=== PATIENT | female | born 1940 | race Caucasian/White ===

== ENCOUNTER 2017-09-08 05:59 | Day surgery (SDC) | payer MEDICARE ==
[2017-09-04 10:10] LABS: BASOPHILS % (AUTO) 0.3 % (0-1); EOSINOPHILS # (AUTO) 0.3 X10'3 (0-0.9); EOSINOPHILS % (AUTO) 4.2 % (0-6); LYMPHOCYTES % (AUTO) 27.9 % (21-51); MEAN CORPUSCULAR HEMOGLOBIN 32.3 PG (27.0-31.0); MEAN CORPUSCULAR HGB CONC 35.5 % (33.0-36.5); MEAN CORPUSCULAR VOLUME 90.9 FL (78-98); MEAN PLATELET VOLUME 8.3 FL (7.4-10.4); MONOCYTES # (AUTO) 0.6 X10'3 (0-0.9); MONOCYTES % (AUTO) 7.9 % (2-12); NEUTROPHILS # (AUTO) 4.3 X10'3 (1.8-7.7); NEUTROPHILS % (AUTO) 59.7 % (42-75); PRE OP HEMOGLOBIN 13.5 g/dL (12.0-16.0); PRE OP PLATELET COUNT 174 X10'3 (140-440); RED BLOOD COUNT 4.18 X10'6 (4.20-5.60); RED CELL DISTRIBUTION WIDTH 13.6 % (11.5-14.5)
[2017-09-04 10:26] LABS: ALBUMIN 3.9 G/DL (3.4-5.0); ALBUMIN/GLOBULIN RATIO 1.3 (1.1-1.5); ALKALINE PHOSPHATASE 90 IU/L (46-116); BLOOD UREA NITROGEN 10 MG/DL (7-18); BUN/CREATININE RATIO 10.8 (6.6-38.0); CALCIUM 9.6 MG/DL (8.5-10.1); CHLORIDE 103 MMOL/L (99-107); CREATININE 0.93 MG/DL (0.40-0.90); PRE OP ALT 21 U/L (30-65); PRE OP ANION GAP 7 (8-16); PRE OP AST 16 U/L (10-37); PRE OP BILIRUB, TOTAL 0.5 MG/DL (0.0-1.0); PRE OP GLUCOSE 180 MG/DL (70-104); PRE OP POTASSIUM 4.3 MMOL/L (3.4-5.1); PRE OP SODIUM 140 MMOL/L (135-145); TOTAL CARBON DIOXIDE 29.6 MMOL/L (24-32); eGFR 58 ML/MIN
[~2017-09-08] VITALS: Ht 170.2 cm; Wt 84.6 kg
[2017-09-08] VITALS (7 sets, daily range): BP systolic 121–149; BP diastolic 67–80
[~2017-09-08 05:59] MED LIST: ACET-3067 PO; ALBU8HFA INH; AMIT-189 PO; AMLO2.5T2 PO; ASPI-529 PO; ATOR40TA PO; CLOT15CR73 TP; DICL50TA8; DOCUMENT DATE & TIME OF BETA-BLOCKER PO ONE; DULO30CA51; HYDR-4070 PO; HYDR28CR14 TOP; INSU100V9 SQ; ISOS30TA9; LEVO50TA8 PO; LOSA25TA21 PO; LYR75C PO; METO-411 PO; NITR0.4T48 SL; NYSTATIN POWDER TOP; OXYB15TA PO; PANT40TA4 PO; ROPI0.252 PO; SITA100T15 PO; albuterol 2.5 MG/3 ML nebule NEB ONE; cefazolin/dext.iso 2gm/50ml 50 ML IV ONE; famotidine 20mg tablet PO ONE; ringers solution, lacted 1,000 ML IV SCH
[2017-09-08] MEDS ORDERED: BUPIVAcaine/PF 2.5 mg/ml (0.25%) 30ml vial ONE (06:47)
[2017-09-08] MEDS ORDERED: insulin regular, human 10 units/0.1 ml syringe SQ ONE (07:15)
[2017-09-08] MEDS ORDERED: LIDOcaine 0.5% (5mg/ml) 50ml vial ONE (08:11)
[2017-09-08] MEDS ORDERED: midazolam 2 mg/2 ml injection ONE (08:43)
[2017-09-08] MEDS ORDERED: sodium bicarbonate 1 MEQ/1 ml inj ONE (08:43)
[2017-09-08] MEDS ORDERED: fentaNYL/PF 50MCG/1 ML 2ML syringe ONE (08:43)
[2017-09-08] MEDS ORDERED: ringers solution, lacted 1,000 ML IV SCH (08:46)
[2017-09-08] MEDS ORDERED: ondansetron/PF 4mg/2ml inj IV PRN (08:50)
[2017-09-08] MEDS ORDERED: morphine 2 MG/ML inj. syringe IV PRN ×2 (08:50)
[2017-09-08] MEDS ORDERED: proCHLORperazine 10 MG/2 ml inj IV PRN (08:50)
[2017-09-08] MEDS ORDERED: fentaNYL/PF 50MCG/1 ML 2ML syringe IV PRN ×2 (08:50)
[2017-09-08] MEDS ORDERED: meperidine/PF 50mg/ml syringe IV PRN (08:50)
[2017-09-08] MEDS ORDERED: propofol inj 20 ML IV ONE (09:05)
== END 2017-09-08 10:15 | disposition home or self-care (01) ==
LOC: PAS 05:59
PROVIDERS: ATTEND Orthopaedic Surgery Hand Surgery
DX: G56.01 Carpal tunnel syndrome, right upper limb (principal); M18.11 Unilateral primary osteoarthritis of first carpometacarpal joint, right hand; G62.9 Polyneuropathy, unspecified; J44.9 Chronic obstructive pulmonary disease, unspecified; E66.9 Obesity, unspecified; E11.40 Type 2 diabetes mellitus with diabetic neuropathy, unspecified; F32.9 Major depressive disorder, single episode, unspecified; G47.33 Obstructive sleep apnea (adult) (pediatric); M19.90 Unspecified osteoarthritis, unspecified site; Z79.82 Long term (current) use of aspirin; Z79.1 Long term (current) use of non-steroidal anti-inflammatories (NSAID); Z79.4 Long term (current) use of insulin; Z96.643 Presence of artificial hip joint, bilateral; Z90.49 Acquired absence of other specified parts of digestive tract; Z98.51 Tubal ligation status; Z88.6 Allergy status to analgesic agent; Z88.8 Allergy status to other drugs, medicaments and biological substances; Z98.890 Other specified postprocedural states; Z68.29 Body mass index [BMI] 29.0-29.9, adult; Z79.899 Other long term (current) drug therapy
CPT/HCPCS: 36415; 64721; 80053; 82948; 85025; 93005; A4565; A6222; A6449; J0690; J2001; J2250; J2704; J3010; J3490; J7120

== ENCOUNTER 2017-12-01 05:17 | Day surgery (SDC) | payer MEDICARE ==
[2017-11-22 13:32] LABS: BASOPHILS % (AUTO) 0.5 % (0-1); EOSINOPHILS # (AUTO) 0.2 X10'3 (0-0.9); EOSINOPHILS % (AUTO) 3.8 % (0-6); LYMPHOCYTES # (AUTO) 1.8 X10'3 (1.1-4.8); LYMPHOCYTES % (AUTO) 31.7 % (21-51); MEAN CORPUSCULAR HEMOGLOBIN 31.7 PG (27.0-31.0); MEAN CORPUSCULAR HGB CONC 34.5 % (33.0-36.5); MEAN CORPUSCULAR VOLUME 91.9 FL (78-98); MEAN PLATELET VOLUME 8.7 FL (7.4-10.4); MONOCYTES # (AUTO) 0.4 X10'3 (0-0.9); NEUTROPHILS # (AUTO) 3.2 X10'3 (1.8-7.7); PRE OP HEMATOCRIT 38.6 % (35.0-45.0); PRE OP HEMOGLOBIN 13.3 g/dL (12.0-16.0); PRE OP PLATELET COUNT 177 X10'3 (140-440); RED CELL DISTRIBUTION WIDTH 13.4 % (11.5-14.5)
[2017-11-22 13:50] LABS: ALBUMIN 3.7 G/DL (3.4-5.0); ALBUMIN/GLOBULIN RATIO 1.1 (1.1-1.5); ALKALINE PHOSPHATASE 107 IU/L (46-116); BLOOD UREA NITROGEN 10 MG/DL (7-18); BUN/CREATININE RATIO 10.3 (6.6-38.0); CALCIUM 9.5 MG/DL (8.5-10.1); CHLORIDE 100 MMOL/L (99-107); CREATININE 0.97 MG/DL (0.40-0.90); PRE OP ALT 33 U/L (30-65); PRE OP ANION GAP 10 (8-16); PRE OP AST 19 U/L (10-37); PRE OP BILIRUB, TOTAL 0.4 MG/DL (0.0-1.0); PRE OP POTASSIUM 4.4 MMOL/L (3.4-5.1); PRE OP SODIUM 138 MMOL/L (135-145); eGFR 56 ML/MIN
[2017-11-22 13:51] LABS: PRE OP GLUCOSE 372 MG/DL (70-104)
[2017-11-22 14:06] LABS: HEMOGLOBIN A1C 9.9 % (4.5-6.2)
[2017-12-01] VITALS (8 sets, daily range): BP systolic 115–168; BP diastolic 70–98
[~2017-12-01] VITALS: Ht 170.2 cm; Wt 84.1 kg
[~2017-12-01 05:17] MED LIST changes: -CLOT15CR73 TP; -DOCUMENT DATE & TIME OF BETA-BLOCKER PO ONE; -HYDR28CR14 TOP; -NYSTATIN POWDER TOP; -albuterol 2.5 MG/3 ML nebule NEB ONE; -cefazolin/dext.iso 2gm/50ml 50 ML IV ONE; -famotidine 20mg tablet PO ONE
[2017-12-01] MEDS ORDERED: Cefazolin 2GM/100ML NS IVPB IV ONE (05:30)
[2017-12-01] MEDS ORDERED: famotidine 20mg tablet PO ONE (05:30)
[2017-12-01] MEDS ORDERED: DOCUMENT DATE & TIME OF BETA-BLOCKER PO ONE (05:30)
[2017-12-01] MEDS ORDERED: LIDOcaine 1% (10mg/ml) 2ml vial ONE (05:51)
[2017-12-01] MEDS ORDERED: BUPIVAcaine/PF 2.5 mg/ml (0.25%) 30ml vial ONE (06:37)
[2017-12-01] MEDS ORDERED: insulin regular, human vial - multi-dose SQ ONE (06:55)
[2017-12-01] MEDS ORDERED: BUPIVAcaine/PF 2.5 mg/ml (0.25%) 30ml vial IJ ONE (08:09)
[2017-12-01] MEDS ORDERED: LIDOcaine 0.5% (5mg/ml) 50ml vial ONE (08:12)
[2017-12-01] MEDS ORDERED: ROPIVAcaine 0.5% (5mg/ml) 30ml vial ONE (08:12)
[2017-12-01] MEDS ORDERED: MIDAZolam 5mg/5ml vial ONE (08:15)
[2017-12-01] MEDS ORDERED: fentaNYL/PF 50MCG/1 ML 2ML syringe ONE (08:15)
[2017-12-01] MEDS ORDERED: triamcinolone acetonide 40mg/ml inj ONE (08:18)
[2017-12-01] MEDS ORDERED: ringers solution, lacted 1,000 ML IV SCH (08:22)
[2017-12-01] MEDS ORDERED: hydrALAZINE 20mg/ml inj. IV PRN (08:25)
[2017-12-01] MEDS ORDERED: morphine 4 MG/ML inj SYRINge IV PRN ×2 (08:25)
[2017-12-01] MEDS ORDERED: ondansetron/PF 4mg/2ml inj IV PRN (08:25)
[2017-12-01] MEDS ORDERED: labetalol 20mg/4ml (5mg/ml) syringe IV PRN (08:25)
[2017-12-01] MEDS ORDERED: fentaNYL/PF 50MCG/1 ML 2ML syringe IV PRN ×2 (08:25)
== END 2017-12-01 10:20 | disposition home or self-care (01) ==
LOC: PAS 05:17
PROVIDERS: ATTEND Orthopaedic Surgery Hand Surgery
DX: M18.11 Unilateral primary osteoarthritis of first carpometacarpal joint, right hand (principal); M18.12 Unilateral primary osteoarthritis of first carpometacarpal joint, left hand; Z79.899 Other long term (current) drug therapy; Z79.4 Long term (current) use of insulin; Z88.8 Allergy status to other drugs, medicaments and biological substances; Z98.890 Other specified postprocedural states; E11.40 Type 2 diabetes mellitus with diabetic neuropathy, unspecified; J44.9 Chronic obstructive pulmonary disease, unspecified; E03.9 Hypothyroidism, unspecified; E66.9 Obesity, unspecified; Z68.30 Body mass index [BMI] 30.0-30.9, adult; Z86.14 Personal history of Methicillin resistant Staphylococcus aureus infection
CPT/HCPCS: 25445; 36415; 80053; 82948; 83036; 85025; A6449; J0690; J1815; J2001; J2250; J2795; J3010; J3301; J3490; J7120; L8630; A7000

== ENCOUNTER 2019-08-23 06:37 | Day surgery (SDC) | payer MEDICARE, MEDICAID ==
[2019-08-16 14:23] LABS: BASOPHILS % (AUTO) 0.8 % (0-1); EOSINOPHILS # (AUTO) 0.1 X10'3 (0-0.9); EOSINOPHILS % (AUTO) 2.9 % (0-6); LYMPHOCYTES # (AUTO) 1.3 X10'3 (1.1-4.8); LYMPHOCYTES % (AUTO) 26.1 % (21-51); MEAN CORPUSCULAR HEMOGLOBIN 32.4 PG (27.0-31.0); MEAN CORPUSCULAR HGB CONC 34.2 g/dL (33.0-36.5); MEAN CORPUSCULAR VOLUME 94.8 FL (78-98); MEAN PLATELET VOLUME 8.8 FL (7.4-10.4); MONOCYTES # (AUTO) 0.4 X10'3 (0-0.9); MONOCYTES % (AUTO) 7.7 % (2-12); NEUTROPHILS # (AUTO) 3.2 X10'3 (1.8-7.7); NEUTROPHILS % (AUTO) 62.5 % (42-75); PRE OP HEMATOCRIT 40.9 % (35.0-45.0); PRE OP PLATELET COUNT 166 X10'3 (140-440); RED BLOOD COUNT 4.31 X10'6 (4.20-5.60); RED CELL DISTRIBUTION WIDTH 13.8 % (11.5-14.5)
[2019-08-16 14:42] LABS: ALBUMIN 3.8 G/DL (3.4-5.0); ALBUMIN/GLOBULIN RATIO 1.4 (1.1-1.5); ALKALINE PHOSPHATASE 72 IU/L (46-116); BLOOD UREA NITROGEN 16 MG/DL (7-18); BUN/CREATININE RATIO 12.2 (6.6-38.0); CHLORIDE 105 MMOL/L (99-107); CREATININE 1.31 MG/DL (0.40-0.90); PRE OP ALT 28 U/L (30-65); PRE OP ANION GAP 6 (8-16); PRE OP AST 14 U/L (10-37); PRE OP BILIRUB, TOTAL 0.3 MG/DL (0.0-1.0); PRE OP POTASSIUM 4.7 MMOL/L (3.4-5.1); PRE OP SODIUM 141 MMOL/L (135-145); TOTAL CARBON DIOXIDE 29.7 MMOL/L (24-32); TOTAL PROTEIN 6.5 G/DL (6.4-8.2); eGFR 39 ML/MIN
[2019-08-16 14:44] LABS: PRE OP GLUCOSE 337 MG/DL (70-104)
[~2019-08-23] VITALS: Ht 172.7 cm; Wt 82.1 kg
[~2019-08-23 06:37] MED LIST changes: -ACET-3067 PO; -AMIT-189 PO; -ATOR40TA PO; -DICL50TA8; -DULO30CA51; +DULO30CA52; -INSU100V9 SQ; -LOSA25TA21 PO; -METO-411 PO; -OXYB15TA PO; +OXYB15TA19 PO; -PANT40TA4 PO; -ROPI0.252 PO; +ceFAZolin 2gm in dextrose, iso 50 ML IV ONE; +famotidine 20mg tablet PO ONE
[2019-08-23 07:00] VITALS: BP 149/71
[2019-08-23] MEDS ORDERED: BUPIVAcaine/PF 2.5mg/ml (0.25%) 10ml vial ONE ×2 (09:12→10:00)
[2019-08-23] MEDS ORDERED: ringers solution, lacted 1,000 ML IV SCH (09:26)
[2019-08-23] MEDS ORDERED: fentaNYL/PF 50MCG/1 ML 2ML syringe IV PRN ×2 (09:30)
[2019-08-23] MEDS ORDERED: meperidine/PF 25mg/ml syringe IV PRN (09:30)
[2019-08-23] MEDS ORDERED: acetaminophen 1,000mg/100ml IV 100 ML IV PRN (09:30)
[2019-08-23] MEDS ORDERED: ondansetron/PF 4mg/2ml inj IV PRN (09:30)
[2019-08-23] MEDS ORDERED: HYDROmorphone inj. 0.5 MG/0.5 ML DISP.SYRIN IV PRN ×2 (09:30)
[2019-08-23] MEDS ORDERED: proCHLORperazine 10 MG/2 ml inj IV PRN (09:30)
[2019-08-23] MEDS ORDERED: BUPIVAcaine/PF 2.5mg/ml (0.25%) 10ml vial IJ ONE (09:41)
[2019-08-23] MEDS ORDERED: LIDOcaine 0.5% (5mg/ml) 50ml vial ONE (09:45)
[2019-08-23] MEDS ORDERED: midazolam 2 mg/2 ml injection ONE (09:47)
[2019-08-23] MEDS ORDERED: fentaNYL/PF 50MCG/1 ML 2ML syringe ONE (09:47)
[2019-08-23] MEDS ORDERED: propofol inj 20 ML IV ONE (10:05)
[2019-08-23 10:20] VITALS: BP 147/74
--- NOTE | 2019-08-23 10:20 | NUR ---
Received from OR via [facility], accompanied by Anesthesiologist MARYSOL and report given by Anesthesiolgist. Pt too sleepy to respond but all VS WNL mask to 10L and sats 100%. Good cap refill to right hand fingers. Gauze and bandage wrap to right wrist. 22G left forearm. IVF LR at 100cc/hr. requests IV tylenol bottle to be hung per orders.
[2019-08-23 10:30] VITALS: BP 160/93
[2019-08-23 10:40] VITALS: BP 163/78
[2019-08-23 10:50] VITALS: BP 143/82
--- NOTE | 2019-08-23 11:00 | NUR ---
Pt discharged to vehicle by wheelchair without incident, dressing remains CDI, good cap refill and motor movement to fingers. All belongings returned to patient, and IV dc'd. Pt and son verbalize understanding of all DC information. Pain prescription already filled at home ready.
== END 2019-08-23 11:00 | disposition home or self-care (01) ==
LOC: PAS 06:37
PROVIDERS: ATTEND Orthopaedic Surgery Hand Surgery
DX: G56.03 Carpal tunnel syndrome, bilateral upper limbs (principal); J44.9 Chronic obstructive pulmonary disease, unspecified; G47.33 Obstructive sleep apnea (adult) (pediatric); I10 Essential (primary) hypertension; E11.40 Type 2 diabetes mellitus with diabetic neuropathy, unspecified; F32.9 Major depressive disorder, single episode, unspecified; M17.11 Unilateral primary osteoarthritis, right knee; M18.12 Unilateral primary osteoarthritis of first carpometacarpal joint, left hand; I25.10 Atherosclerotic heart disease of native coronary artery without angina pectoris; Z96.651 Presence of right artificial knee joint; Z90.49 Acquired absence of other specified parts of digestive tract; Z98.890 Other specified postprocedural states; Z88.8 Allergy status to other drugs, medicaments and biological substances; Z79.4 Long term (current) use of insulin; Z79.899 Other long term (current) drug therapy
CPT/HCPCS: 36415; 64721; 80053; 82948; 85025; 93005; J0131; J2001; J2250; J2704; J3010; J3490; A4215; J7120

== ENCOUNTER 2019-12-23 06:44 | Day surgery (SDC) | payer MEDICARE, MEDICAID ==
[2019-12-17 15:55] LABS: BASOPHILS # (AUTO) 0.1 X10'3 (0-0.2); BASOPHILS % (AUTO) 0.9 % (0-1); EOSINOPHILS # (AUTO) 0.3 X10'3 (0-0.9); EOSINOPHILS % (AUTO) 5.2 % (0-6); LYMPHOCYTES # (AUTO) 2.2 X10'3 (1.1-4.8); LYMPHOCYTES % (AUTO) 36.7 % (21-51); MEAN CORPUSCULAR HEMOGLOBIN 31.9 PG (27.0-31.0); MEAN CORPUSCULAR HGB CONC 33.4 g/dL (33.0-36.5); MEAN CORPUSCULAR VOLUME 95.8 FL (78-98); MEAN PLATELET VOLUME 9.1 FL (7.4-10.4); MONOCYTES # (AUTO) 0.6 X10'3 (0-0.9); MONOCYTES % (AUTO) 9.3 % (2-12); NEUTROPHILS # (AUTO) 2.9 X10'3 (1.8-7.7); NEUTROPHILS % (AUTO) 47.9 % (42-75); PRE OP HEMATOCRIT 41.3 % (35.0-45.0); PRE OP HEMOGLOBIN 13.8 g/dL (12.0-16.0); PRE OP PLATELET COUNT 175 X10'3 (140-440); RED BLOOD COUNT 4.32 X10'6 (4.20-5.60); RED CELL DISTRIBUTION WIDTH 13.5 % (11.5-14.5)
[2019-12-17 16:02] LABS: ALBUMIN/GLOBULIN RATIO 1.4 (1.1-1.5); ALKALINE PHOSPHATASE 85 IU/L (46-116); BLOOD UREA NITROGEN 12 MG/DL (7-18); BUN/CREATININE RATIO 9.7 (6.6-38.0); CALCIUM 9.6 MG/DL (8.5-10.1); CHLORIDE 103 MMOL/L (99-107); CREATININE 1.24 MG/DL (0.40-0.90); PRE OP ALT 28 U/L (30-65); PRE OP ANION GAP 5 (8-16); PRE OP AST 17 U/L (10-37); PRE OP BILIRUB, TOTAL 0.4 MG/DL (0.0-1.0); PRE OP GLUCOSE 175 MG/DL (70-104); PRE OP POTASSIUM 4.4 MMOL/L (3.4-5.1); PRE OP SODIUM 140 MMOL/L (135-145); TOTAL CARBON DIOXIDE 31.6 MMOL/L (24-32); TOTAL PROTEIN 6.9 G/DL (6.4-8.2); eGFR 42 ML/MIN
[2019-12-23] VITALS (7 sets, daily range): BP systolic 142–172; BP diastolic 68–78
[~2019-12-23] VITALS: Ht 170.2 cm; Wt 83.9 kg
[~2019-12-23 06:44] MED LIST changes: +ATOR40TA71 PO; +BUPIVAcaine/PF 2.5mg/ml (0.25%) 10ml vial ONE; +DOCUMENT DATE & TIME OF BETA-BLOCKER PO ONE; +EMPA25TA PO; +METO-384 PO
[2019-12-23] MEDS ORDERED: ringers solution, lacted 1,000 ML IV SCH (07:34)
[2019-12-23] MEDS ORDERED: proCHLORperazine 10 MG/2 ml inj IV PRN (07:35)
[2019-12-23] MEDS ORDERED: HYDROmorphone inj. 0.5 MG/0.5 ML DISP.SYRIN IV PRN ×2 (07:35)
[2019-12-23] MEDS ORDERED: fentaNYL/PF 50MCG/1 ML 2ML syringe IV PRN ×2 (07:35)
[2019-12-23] MEDS ORDERED: ondansetron/PF 4mg/2ml inj IV PRN (07:35)
[2019-12-23] MEDS ORDERED: meperidine/PF 25mg/ml syringe IV PRN (07:35)
[2019-12-23] MEDS ORDERED: acetaminophen 1,000mg/100ml IV 100 ML IV PRN (07:35)
[2019-12-23] MEDS ORDERED: metoprolol succinate 25mg (24-HOUR) SR. Tablet PO SCH (08:00)
[2019-12-23] MEDS ORDERED: ROPIVAcaine 0.5% (5mg/ml) 30ml vial ONE ×2 (09:06)
[2019-12-23] MEDS ORDERED: sevoflurane 250ml liquid IH ONE (09:16)
[2019-12-23] MEDS ORDERED: fentaNYL/PF 50MCG/1 ML 2ML syringe ONE (09:19)
[2019-12-23] MEDS ORDERED: LIDOcaine 2% (20mg/ml) 5ml vial ONE (09:19)
[2019-12-23] MEDS ORDERED: midazolam 2 mg/2 ml injection ONE (09:19)
[2019-12-23] MEDS ORDERED: propofol inj 20 ML IV ONE (09:19)
[2019-12-23] MEDS ORDERED: dexamethasone sod phosphate 4mg/ml inj. ONE (09:55)
[2019-12-23] MEDS ORDERED: ePHEDrine 50MG/ML INJ. ONE (09:56)
[2019-12-23] MEDS ORDERED: ondansetron/PF 4mg/2ml inj ONE (09:56)
[2019-12-23] MEDS ORDERED: naloxone 0.4 mg/ml inj ONE (10:26)
[2019-12-23] MEDS ORDERED: BUPIVAcaine/PF 2.5mg/ml (0.25%) 10ml vial ONE (10:26)
--- NOTE | 2019-12-23 10:47 | NUR ---
Received from OR via [facility], accompanied by Anesthesiologist DR Alcala and report given by Anesthesiolgist. PATIENT A&OX4, DENIES PAIN, V/S WNL, NEUROVASCULAR CHECKS INTACT, SCD ON, RIGHT WRIST DRESSING CDI ELEVATED WITH ICE BAG APPLIED. FINGERS PINK AND CAP REFILL LESS THAN 3 SECS. 20G LEFT AC.
--- NOTE | 2019-12-23 11:42 | NUR ---
PT DISCHARGED TO WHEELCHAIR WITHOUT INCIDENT. PATIENT A&OX4, DENIES PAIN, V/S WNL, NEUROVASCULAR CHECKS INTACT, 20G PIV LUE D/C WITH NO COMPLICATIONS OBSERVED, SCD OFF, dressing to wrist remains CDI and fingers remain pink with good cap refill. I HAVE REVIEWED D/C INSTRUCTIONS WITH PATIENT AND FAMILY AND THEY HAVE VERBALIZED UNDERSTANDING. PATIENT D/C HOME WITH FAMILY TO TRANSPORT AND ALL BELONGINGS RETURNED TO PATIENT. PT STATES THEY HAVE PAIN MEDS AT HOME FROM MD OFFICE.
== END 2019-12-23 11:42 | disposition home or self-care (01) ==
LOC: PAS 06:44
PROVIDERS: ATTEND Orthopaedic Surgery Hand Surgery
DX: T84.84XA Pain due to internal orthopedic prosthetic devices, implants and grafts, initial encounter (principal); J44.9 Chronic obstructive pulmonary disease, unspecified; G47.33 Obstructive sleep apnea (adult) (pediatric); I25.10 Atherosclerotic heart disease of native coronary artery without angina pectoris; E11.22 Type 2 diabetes mellitus with diabetic chronic kidney disease; I12.9 Hypertensive chronic kidney disease with stage 1 through stage 4 chronic kidney disease, or unspecified chronic kidney disease; N18.3 Chronic kidney disease, stage 3 (moderate); E03.9 Hypothyroidism, unspecified; M19.90 Unspecified osteoarthritis, unspecified site; E11.40 Type 2 diabetes mellitus with diabetic neuropathy, unspecified; G89.18 Other acute postprocedural pain; E66.9 Obesity, unspecified; Z68.29 Body mass index [BMI] 29.0-29.9, adult; Z98.890 Other specified postprocedural states; Z96.643 Presence of artificial hip joint, bilateral; Z90.49 Acquired absence of other specified parts of digestive tract; Z11.59 Encounter for screening for other viral diseases; Z79.899 Other long term (current) drug therapy; Y83.8 Other surgical procedures as the cause of abnormal reaction of the patient, or of later complication, without mention of misadventure at the time of the procedure; Y92.89 Other specified places as the place of occurrence of the external cause
CPT/HCPCS: 25447; 26320; 36415; 64415; 64417; 80053; 82948; 85025; J1100; J2001; J2250; J2310; J2405; J2704; J3010; J3490; J7120; U0003; A4215; A4618; A7000; J2795